=== PATIENT | female | born 1935 | race Caucasian/White ===

== ENCOUNTER 2021-10-24 13:30 | Outpatient (RCR) | payer MEDICARE, BC | END 2021-11-02 | disposition home or self-care (01) | LOC: MKS.ESL.PT | DX: C50.919 Malignant neoplasm of unspecified site of unspecified female breast (principal); I97.2 Postmastectomy lymphedema syndrome; Z90.11 Acquired absence of right breast and nipple ==

== ENCOUNTER 2021-12-19 14:15 | Outpatient (RCR) | payer MEDICARE, BC | END 2021-12-31 | disposition home or self-care (01) | LOC: MKS.ESL.PT | DX: C50.919 Malignant neoplasm of unspecified site of unspecified female breast (principal); I97.2 Postmastectomy lymphedema syndrome ==

== ENCOUNTER → 2022-03-26 15:15 | Outpatient (RCR) | payer MEDICARE, BC | END | disposition home or self-care (01) | LOC: MKS.ESL.PT 01-01 14:30 | DX: I89.0 Lymphedema, not elsewhere classified (principal) ==